=== PATIENT | female | born 1970 ===

== ENCOUNTER 2024-12-20 10:15 | Inpatient (IN) | payer OTHER ==
[~2024-12-20] VITALS: Ht 160 cm; Wt 72.6 kg
[2024-12-20 11:49] VITALS: BP 108/66
[2024-12-20 11:53] VITALS: BP 141/84
[2024-12-20 11:57] LABS: COVID-19 AG NEGATIVE (NEGATIVE)
[2024-12-20] MEDS ORDERED: ELIQUIS5 MG PO (11:59)
[2024-12-20 13:02] LABS: RH POSITIVE
[2024-12-23] MEDS ORDERED: MORPHINE SULFATE 4 MG/ML VIAL IV ONE ×2 (03:25→15:25)
[2024-12-23] MEDS ORDERED: CLINDAMYCIN PHOSPHATE 150 MG/ML (600mg) IV ONE (13:00)
[2024-12-23] MEDS ORDERED: METRONIDAZOLE/SODIUM CHLORIDE 500 MG/100 ML PIGGYBACK IV ONE (13:00)
[2024-12-23] MEDS ORDERED: ONDANSETRON HCL 2 MG/ML VIAL IV PRN (14:15)
[2024-12-23] MEDS ORDERED: MORPHINE SULFATE 4 MG/ML CARTRIDGE IV PRN (14:15)
[2024-12-23] MEDS ORDERED: THROMBIN,HU/FIBRINOGEN/CALCIUM 4 ML SYRINGE TOP ONE (14:15)
[2024-12-23] MEDS ORDERED: OxyCODONE HCL 5 MG TABLET (ROXICODONE) PO PRN (14:15)
[2024-12-23] MEDS ORDERED: VISTASEAL DUAL APPICATOR 1 EACH APPL TOP ONE (14:15)
[2024-12-23] MEDS ORDERED: RINGERS SOLUTION,LACTATED 1,000 ML IV SCH (14:15)
[2024-12-23 16:51] LABS: BUN CREA RATIO 9.0 (7.0-25.0); CREATININE SERUM 0.68 mg/dL (0.55-1.02); GFR 90.86; GLUCOSE FASTING 90.0 mg/dL (65-100); OSMOLALITY SERUM 284.0 MOSM/KG (275-295)
[2024-12-23] MEDS ORDERED: METRONIDAZOLE/SODIUM CHLORIDE 500 MG/100 ML PIGGYBACK IV SCH (17:00)
[2024-12-23] MEDS ORDERED: GABAPENTIN 300 MG CAPSULE PO SCH (17:00)
[2024-12-23 17:45] LABS: BASO % 0.8 % (0.1-1.2); EOS # 0.11 (0.04-0.54); EOS % 1.4 % (0.7-7.0); LYMPH # 1.64 (1.18-3.74); LYMPH % 20.5 % (19.3-53.1); MEAN PLATELET VOLUME 13.40 fl (9.4-12.4); MONO # 0.33 (0.24-0.82); MONO % 4.1 % (4.7-12.5); NEUT # 5.81 (1.56-6.13); NEUT % 72.7 % (34.0-71.1); RED CELL DISTRIBUTION WIDTH 13.8 % (11.6-14.4)
[2024-12-23 18:27] VITALS: BP 108/66; O2SAT 100
[2024-12-23] MEDS ORDERED: FAMOTIDINE/PF 20 MG/2 ML VIAL IV PUSH SCH (21:00)
[2024-12-24 01:45] VITALS: BP 100/62; O2SAT 100
[2024-12-24 06:45] LABS: BASO % 0.3 % (0.1-1.2); EOS # 0.06 (0.04-0.54); EOS % 0.7 % (0.7-7.0); LYMPH # 1.01 (1.18-3.74); LYMPH % 11.3 % (19.3-53.1); MEAN PLATELET VOLUME 13.10 fl (9.4-12.4); MONO # 0.44 (0.24-0.82); MONO % 4.9 % (4.7-12.5); NEUT # 7.40 (1.56-6.13); NEUT % 82.6 % (34.0-71.1); RED CELL DISTRIBUTION WIDTH 14.1 % (11.6-14.4)
[2024-12-24 07:36] LABS: BUN CREA RATIO 10.0 (7.0-25.0); CREATININE SERUM 0.7 mg/dL (0.55-1.02); GFR 87.87; GLUCOSE FASTING 89.0 mg/dL (65-100); OSMOLALITY SERUM 279.0 MOSM/KG (275-295)
[2024-12-24 08:00] VITALS: BP 99/64; O2SAT 99
[2024-12-24] MEDS ORDERED: ACETAMINOPHEN 500 MG GEL..CAP PO SCH (08:00)
[2024-12-24] MEDS ORDERED: ENOXAPARIN SODIUM 40 MG/0.4 ML SYRINGE SUBCUTANEO SCH (09:00)
[2024-12-24] MEDS ORDERED: DOCUSATE SODIUM 100MG CAP PO SCH (09:00)
[2024-12-24] MEDS ORDERED: SIMETHICONE 125 MG CAPSULE PO SCH (09:00)
[2024-12-24] MEDS ORDERED: METOCLOPRAMIDE HCL 5 MG/ML VIAL IV SCH (09:00)
[2024-12-24] MEDS ORDERED: ENOXAPARIN SODIUM 40 MG/0.4 ML SYRINGE SUBCUTANEO NR (10:00)
[2024-12-24 13:03] VITALS: BP 90/60
[2024-12-25] MEDS ORDERED: ENOXAPARIN SODIUM 40 MG/0.4 ML SYRINGE SUBCUTANEO SCH (09:00)
== END 2024-12-24 14:52 | disposition home or self-care (01) | DRG 741 ==
LOC: O/R 12-23 08:31 → SURH 12-23 09:00 → OB/GYN 12-23 15:49
PROVIDERS: ADMIT Obstetrics & Gynecology Gynecologic Oncology; ATTEND Obstetrics & Gynecology Gynecologic Oncology
PROC: 0UT74ZZ Resection of Bilateral Fallopian Tubes, Percutaneous Endoscopic Approach (ICD-10-PCS; 2024-12-23)
PROC: 0UT24ZZ Resection of Bilateral Ovaries, Percutaneous Endoscopic Approach (ICD-10-PCS; 2024-12-23)
PROC: 0UBG4ZZ Excision of Vagina, Percutaneous Endoscopic Approach (ICD-10-PCS; 2024-12-23)
PROC: 8E0W4CZ Robotic Assisted Procedure of Trunk Region, Percutaneous Endoscopic Approach (ICD-10-PCS; 2024-12-23)
PROC: 0UT94ZZ Resection of Uterus, Percutaneous Endoscopic Approach (ICD-10-PCS; principal; 2024-12-23 09:00)
DX: C54.1 Malignant neoplasm of endometrium (principal); N84.0 Polyp of corpus uteri; N80.03 Adenomyosis of the uterus; D25.9 Leiomyoma of uterus, unspecified; N83.202 Unspecified ovarian cyst, left side
CPT/HCPCS: 58571; 57106; S2900